=== PATIENT | female | born 1975 | race African-American/Black ===

== ENCOUNTER 2025-01-25 14:27 | Emergency (ER) | payer OTHER ==
[~2025-01-25] VITALS: Ht 167.6 cm; Wt 70.0 kg
[2025-01-25 14:45] VITALS: O2SAT 100
[2025-01-25] MEDS: CYCLOBENZAPRINE 10MG TABLET PO ONE (16:38)
[2025-01-25] MEDS: LIDOCAINE 5% PATCH TOP SCH (16:38)
[2025-01-25] MEDS: KETOROLAC 30MG/ML VIAL IM ONE (16:39)
[2025-01-25 16:45] VITALS: BP 108/70; PULSE 81; RESP 16; TEMP 37.2; O2SAT 100
[2025-01-25] MEDS ORDERED: IBUP-2028 MT (17:01)
[2025-01-25] MEDS ORDERED: CYCL5TAB3 MT (17:01)
[2025-01-25] MEDS ORDERED: LIDO-53 TP (17:01)
== END 2025-01-25 17:09 | disposition home or self-care (01) ==
LOC: ER 14:27
DX: M54.50 Low back pain, unspecified (principal)
CPT/HCPCS: 99283; 81025; 96372; J1885